=== PATIENT | male | born 1940 | race Caucasian/White ===

== ENCOUNTER 2017-04-25 10:25 | Day surgery (SDC) | payer MEDICARE, OTHER ==
[2017-04-25] VITALS (11 sets, daily range): BP systolic 124–151; BP diastolic 68–81; PULSE 68–86; RESP 16–19; TEMP 97.8–98.6; O2SAT 95–98
[~2017-04-25] VITALS: Ht 165.1 cm; Wt 98.3 kg
[2017-04-25] MEDS ORDERED: IOHEXOL 350 MG/ML 100 ML BTL (for Cath Lab) OTHER ONE (10:26)
[2017-04-25] MEDS ORDERED: NS 1000P @30 MLS/HR (KVO) IV SCH (11:00)
[2017-04-25] MEDS ORDERED: ASPIRIN 81 MG CHEW TAB PO SCH (11:15)
[2017-04-25 11:25] LABS: AUTOMATED NEUTROPHIL # 2.8 TH/MM3 (1.8-7.7); BASOPHIL % 0.6 % (0.0-2.0); EOSINOPHIL # 0.3 TH/MM3 (0-0.4); HEMATOCRIT 41.2 % (39.0-51.0); HEMOGLOBIN 14.4 GM/DL (13.0-17.0); LYMPH % 31.8 % (9.0-44.0); LYMPHOCYTE # 1.7 TH/MM3 (1.0-4.8); MEAN CELL VOLUME 87.9 FL (80.0-100.0); MEAN CORPUSCULAR HEMOGLOBIN 30.7 PG (27.0-34.0); MEAN CORPUSCULAR HGB CONC 34.9 % (32.0-36.0); MEAN PLATELET VOLUME 7.1 FL (7.0-11.0); MONO % 11.2 % (0.0-8.0); MONOCYTE # 0.6 TH/MM3 (0-0.9); NEUT % 51.4 % (16.0-70.0); PLATELET COUNT 185 TH/MM3 (150-450); RED BLOOD COUNT 4.69 MIL/MM3 (4.50-5.90); RED CELL DISTRIBUTION WIDTH 13.7 % (11.6-17.2); WHITE BLOOD COUNT 5.4 TH/MM3 (4.0-11.0)
[2017-04-25] MEDS ORDERED: ECASA81 PO (11:26)
[2017-04-25] MEDS ORDERED: METO1TAB42 PO (11:26)
[2017-04-25] MEDS ORDERED: ALTA2.5C4 PO (11:26)
[2017-04-25] MEDS ORDERED: LEVO75TA3 PO (11:26)
[2017-04-25] MEDS ORDERED: FAMO40TA PO (11:26)
[2017-04-25] MEDS ORDERED: LIPI10TA PO (11:26)
[2017-04-25] MEDS ORDERED: PLAV75TA29 PO (11:26)
[2017-04-25 11:34] LABS: INTERNATIONAL NORMALIZED RATIO 1.1 RATIO; PROTHROMBIN TIME - PATIENT 10.7 SEC (9.8-11.6)
[2017-04-25 11:40] LABS: BICARBONATE 28.2 MEQ/L (21.0-32.0); CALCIUM 8.6 MG/DL (8.5-10.1); CREATININE 1.15 MG/DL (0.60-1.30)
[2017-04-25] MEDS ORDERED: HEPARIN-NS/PF FLUSH BAG 1,000 ML IV FLUSH ONE (12:16)
[2017-04-25] MEDS ORDERED: MIDAZOLAM HCL 2 MG/2 ML VIAL IV ONE (12:44)
[2017-04-25] MEDS ORDERED: ADENOSINE STRESS TEST INJ 90 MG/30 ML VIAL IV ONE (13:05)
--- NOTE | 2017-04-25 13:24 | CATHPROC ---
Custom Coup HIS Report Study Information Study Number Admission Scheduled Start Study Start [id number] Apr 25 2017 10:25AM 04/25/2017 Apr 25 2017 11:33AM [place] [facility] Cardiac Catheterization Admit Source Facility Department Other [facility] Physician and Clinical Staff Initial MD Young, Ten Web Content Director Tan Hannon,ELIF Other cathlab, cathlab Recorder Shannan Ramires,ODD JOBS DAY WORKER TECH2 Scrub Shayla Melara,RT(R) (BS) Procedures Performed Procedure Location (Site) Vessel Name Coronary Angiograms LCA Left Coronary Coronary Angiograms RCA Right Coronary L Heart Cath LV Gram-hand inj. LV LV Ventricle Equipment Time Protective Services Social Worker Description Size Mfg Part Number Used/Scraped TRANSDUCER, TRUWAVE [id number] 12:22 DRAKE LINO * Used W/STOCKCOCK *[id number] *[id number] *[id number] *[id number] 12:22 MEDLINE IND[employer] PACK, CCL CUSTOM * Used *[id number] 12:22 DesignMyNight PACER PEN, SKIN DUAL W/ RULER * Used *[id number] 12:54 i[employer]Run MEDICAL SHEATH, FR6.5 PRELUDE 11CM FR 6.5 038ACT Used *[id number] 12:22 [employer] MEDICAL WIRE, 3MMJ .035 180CM 180CM Used *[id number] 12:22 NAMIC MANIFOLD, 4 PORT * Used *[id number] 12:22 NYCOMED OMNIPAQUE, 350 MG, 150ML 150ML [id number] Used [id number] 12:22 [employer] MEDICAL BLANKET,WARM AIR CCL * Used *[id number] 12:22 TERUMO MEDICAL SHEATH, FR4 TERUMO (10CM) FR 4 Used *[id number] 12:59 [place] PRIME WIRE, VERRATA 185CM 185CM [id number] *[id number] Used History: Current Medications Medication Dosage/Unit Route Frequency Last Date/Time Taken PLAVIX LIPITOR NORVASC History: Allergies Allergy Reaction No Known Allergies History: Risk Factors Family History of Hypertension Dyslipidemia Previous LA Previous Heart Failure Premature CAD Yes No Yes No No Prior Valve Prior PCI Prior PCIDate Prior CABG Surgery Yes Yes 02/29/2012 No Cerebrovascular Peripheral Artery Chronic Lung On Dialysis Diabetes Disease Disease Disease No Yes No No No History: Stress Tests Stress or Imaging Studies Performed Yes Standard Exercise Stress Stress Test Result Stress Test Ischemia Risk/Extent Test Yes Positive Intermediate Stress Echo No Stress Test SPECT No Stress Test CMR No Cardiac CTA Coronary Calcium Score No No History: Other Current Smoker Method Quit Packs a Day Years Used Pack Years Yes Cigarettes 55 Years Ago 1 6 6 Labs Hgb (g/dl) Hct (%) RBC (MIL/MM3) WBC (l/cumm) Platelets (thousands) 11.60-17.00 35.00-51.00 4.00-5.90 4.00-11.00 150.00-450.00 14.4 41.2 4.6 5.4 185 Glucose (mg/dl) BUN (mg/dl) Creatinine (mg/dl) BUN:Creatinine (1:x) 74.00-106.00 7.00-18.00 0.50-1.30 10.00-20.00 101 21 1.1 19.1 Na (meq/l) K (meq/l) Cl (meq/l) CO2 (mmol/L) Ca (mg/dl) 136.00-145.00 3.50-5.10 98.00-107.00 21.00-32.00 8.50-10.10 141 4 108 28.2 8.6 PT (sec) PTT (sec) INR (PTT:PT) 9.80-11.60 24.30-30.10 0.90-1.10 10.7 42.5 1.1 Medication Medication Total Dose (Bolus/Oral) Medication Total Dosage/Unit 1% XYLOCAINE 20 mL HEPARIN 6800 units VERSED 1 mg Medications (Bolus/Oral) Medication Time Given Dosage/Unit Administered By Reason 1% XYLOCAINE 04/25/2017 12:43:11 PM 20 mL Ten Young 20 mL 1% XYLOCAINE given in lab by Ten Young in Right Groin via Subcutaneous. Ordered by Ten Amin. VERSED 04/25/2017 12:44:07 PM 1 mg Tan Hannon 1 mg VERSED given in lab by Tan Hannon RN in Left Hand via Peripheral IV. Ordered by Wilfredo Young. HEPARIN 04/25/2017 12:54:16 PM 6800 units Tan Hannon 6800 units HEPARIN given in lab by Tan Hannon RN in Left Hand via Peripheral IV. Ordered by Ten Amin. Medication (Drip) Medication Time Given Dosage/Unit Concentration/Unit Diluent (ml) Solution ADENOSINE DRIP 04/25/2017 1:05:30 PM 138.718 mcg/kg/min 90 mg 90 NaCl .9 138.718 mcg/kg/min ADENOSINE DRIP given in lab by Tan Hannon RN in Left Hand via Peripheral IV. P ump/Drip Flow = 814 ml/hr using NaCl .9 with a concentration of 90 mg in 90 ml. Ordered by Ten Young. IV Solutions 04/25/2017 12:18:30 PM 0 mL (IV) 500 NaCl .9 IV Solutions given in lab by Tan Hannon RN in Left Hand via Peripheral IV. Pump/Drip Flow = 20 ml /hr using NaCl .9. Ordered by Ten Young. Initial Case Assessment Cardiovascular HR NIBP 62 150/70 Edema Present Skin color Skin None Normal Warm Dry Circulatory - Right Pulses Dorsalis Pedis Femoral 2 2 Scale (0,1,2,3,4,d) Circulatory - Left Pulses Dorsalis Pedis Femoral 2 2 Scale (0,1,2,3,4,d) Neurological State Oriented to time-place- Alert Moves all extremities person Respiration - General Respiration Rate SpO2 (%) (B/min) 15 97 Final Case Assessment Cardiovascular HR NIBP 81 137/78 Edema Present Skin color Skin None Normal Warm Dry Circulatory - Right Pulses Dorsalis Pedis Femoral 2 2 Scale (0,1,2,3,4,d) Circulatory - Left Pulses Dorsalis Pedis Femoral 2 2 Scale (0,1,2,3,4,d) Neurological State Oriented to time-place- Alert Moves all extremities person Respiration - General Respiration Rate SpO2 (%) (B/min) 17 97 Chronological Log Time Study Chronological Log 12:18:17 Patient arrived via Bed. 12:18:18 Patient Name, D.O.B, / Armband Verified By R.N. 12:18:19 Consent signed by the physician and the patient and verified by the [facility] staff. 12:18:19 Pre-op and post- op instructions given; patient acknowledges understanding of instructions. 12:18:22 Patient has been NPO for More than 6Hrs. 12:18:23 NO Skin Breakdown- 12:18:24 Patient Warmer Placed on the Table. 12:18:25 Mik Prominences Protected 12:18:28 A # 20 IV was noted in the Hand (left). Grade = 0 IV Solutions given in lab by Tan Hannon RN in Left Hand via Peripheral IV. Pump/Drip Flow = 20 ml/hr using NaCl .9. 12:18:30 Ordered by Ten Young. 12:18:32 History and physical on the chart or being dictated. Vitals capture started with the following parameters, Patient=Adult, Interval=5 min, Initial Pr nmjhec=437 mmHg, 12:22:55 Deflation Rate=5 mmHg, Cuff placed on Left Arm Vitals capture started with the following parameters, Patient=Adult, Interval=5 min, Initial Pr mntkdv=806 mmHg, 12:23:46 Deflation Rate=5 mmHg, Cuff placed on Left Arm 12:24:28 HR=62 bpm, RXAC=911/70 mmhg, SpO2=97.0 %, Resp=15 B/min, Pain=0, Phoebe=10, Healy=2 Assessment: Initial Case, HR=62 BPM, HWEA=201/70 mmhg, Edema=None, Color=Normal, Skin = Warm, D ry Right Pulses: Ministerio Ped=2, Femoral=2 12:25:46 Left Pulses: Ministerio Ped=2, Femoral=2 Neurological: State=Alert, Ox3, HMAEED Respiration: Resp=15 B/min, SpO2=97 % 12:29:59 HR=73 bpm, RAOJ=696/73 mmhg, SpO2=97.0 %, Resp=13 B/min, Pain=0, Phoebe=10, Healy=2 12:34:26 HR=65 bpm, HVJT=042/79 mmhg, SpO2=98.0 %, Resp=17 B/min, Pain=0, Phoebe=10, Healy=2 12:38:17 Pressure channel 1 zeroed. 12:38:23 Reference ECG taken 12:39:53 HR=74 bpm, YJXE=261/81 mmhg, SpO2=95.0 %, Resp=10 B/min, Pain=0, Phoebe=10, Healy=2 Time Out. Correct patient, correct procedure, correct physician, power injector loaded, or not loaded with contrast with 12:43:08 surgical team present. Time Out Concurred by MD and individual staff in procedure. 12:43:09 Case Start 20 mL 1% XYLOCAINE given in lab by Ten Young in Right Groin via Subcutaneous. Ordered by Hannah 12:43:11 Ten. 12:44:07 1 mg VERSED given in lab by Tan Hannon RN in Left Hand via Peripheral IV. Ordered by Ten Lai. 12:44:22 HR=82 bpm, LEZK=049/104 mmhg, SpO2=97.0 %, Resp=12 B/min, Pain=0, Phoebe=10, Healy=2 12:45:07 Access site was Right Femoral Artery. 12:45:13 A SHEATH, FR4 TERUMO (10CM) FR 4 was advanced into the Fem Art (right) using the Modified S eldinger technique. A JR 4.0 INFINITI CATHETER FR 4 was advanced over a wire. OMNIPAQUE, 350 MG, 150ML 150ML was us ed for 12:45:22 injections. Recorded Pressure: LV, HR=79, Condition=Condition 1 12:46:33 (Left Ventricle) LV 145/7/19 12:46:36 The LV was manually injected with 10 cc's and visualized. OMNIPAQUE, 350 MG, 150ML 150ML us ed. Recorded Pressure: LV, Ao, HR=76, Condition=Condition 1 12:46:47 (Left Ventricle) LV 139/6/16, (Aorta) Ao 136/71/101 Recorded Pressure: Ao, HR=77, Condition=Condition 1 12:46:55 (Aorta) Ao 141/74/104 12:47:30 The RCA was injected and visualized at various angles. OMNIPAQUE, 350 MG, 150ML 150ML used . 12:49:27 HR=80 bpm, AFEQ=310/82 mmhg, SpO2=95.0 %, Resp=15 B/min, Pain=0, Phoebe=10, Healy=2 12:51:28 Catheter was removed A JL 4.0 INFINITI CATHETER FR 4 was advanced over a wire. OMNIPAQUE, 350 MG, 150ML 150ML was us ed for 12:51:29 injections. 12:52:25 The LCA was injected and visualized at various angles. OMNIPAQUE, 350 MG, 150ML 150ML used . A SHEATH, FR6.5 PRELUDE 11CM FR 6.5 was exchanged in the Fem Art (right). This was necessary in order to 12:53:37 accomodate a larger catheter. 12:54:16 6800 units HEPARIN given in lab by Tan Hannon, RN in Left Hand via Peripheral IV. Ordere d by Ten Young. 12:54:26 HR=85 bpm, HDLQ=784/77 mmhg, SpO2=96.0 %, Resp=20 B/min, Pain=0, Phoebe=10, Healy=2 A JR 4.0 GUIDE CATHETER FR 6 was advanced over a wire. OMNIPAQUE, 350 MG, 150ML 150ML was used for 12:55:22 injections. 12:59:56 HR=77 bpm, HGTD=182/81 mmhg, SpO2=95.0 %, Resp=14 B/min, Pain=0, Phoebe=10, Healy=2 13:00:48 Flow Wire was was placed in the RCA. The FFR measures ~FFR~ percent. The IFR measures 0.93 Percent. 13:02:46 Activated Clotting Time Drawn 13:04:26 HR=87 bpm, LELD=869/79 mmhg, SpO2=97.0 %, Resp=17 B/min, Pain=0, Phoebe=10, Healy=2 138.718 mcg/kg/min ADENOSINE DRIP given in lab by Tan Hannon, RN in Left Hand via Peripheral IV. Pump/Drip Flow 13:05:30 = 814 ml/hr using NaCl .9 with a concentration of 90 mg in 90 ml. Ordered by Ten Young. 13:08:16 ACT (Normal Range 90-180) = 290 13:09:27 HR=87 bpm, RWSJ=632/75 mmhg, SpO2=99.0 %, Resp=14 B/min, Pain=0, Phoebe=10, Healy=2 13:10:21 ADENOSINE DRIP DISCONTINUED 13:11:23 The wire was removed. 13:11:30 Catheter was removed 13:11:51 Case End 13:11:56 Catheter(s) removed without difficulty 13:11:58 In the Fem Art (right) the SHEATH, FR6.5 PRELUDE 11CM FR 6.[address] by Shayla Clark RT(R) (BS). 13:12:04 Sterile dressing applied to site 13:12:05 No case complications noted. 13:12:07 Cine recording checked. 13:12:10 Bedside Report will be given. 13:12:15 A Left Heart Cath was performed. 13:15:05 HR=81 bpm, QJCI=048/78 mmhg, SpO2=97.0 %, Resp=17 B/min, Pain=0, Phoebe=10, Healy=2 13:16:53 Vitals capture stopped. Assessment: Final Case, HR=81 BPM, DROI=457/78 mmhg, Edema=None, Color=Normal, Skin = Warm, Dr y Right Pulses: Ministerio Ped=2, Femoral=2 13:16:57 Left Pulses: Ministerio Ped=2, Femoral=2 Neurological: State=Alert, Ox3, HAMEED Respiration: Resp=17 B/min, SpO2=97 % 13:24:15 Patient moved to stretcher End Study - Contrast Media Used In Study Contrast Total Opened (mL) Total Used (mL) Total Wasted (mL) Omnipaque 70 70 0 End Study - Maximum Contrast Load Max Contrast Load (mL) 444.6 End Study - Radiation Exposure Fluoro Time (minutes) 3.7 End Study - Patient Disposition Complications Transferred To Telemetry Bed
[2017-04-25] MEDS ORDERED: MIDAZOLAM HCL 2 MG/2 ML VIAL ONE (13:32)
[2017-04-25] MEDS ORDERED: ADENOSINE STRESS TEST INJ 90 MG/30 ML VIAL ONE (13:33)
[2017-04-25] MEDS ORDERED: HEPARIN SODIUM - IV 10,000 UNITS/10 ML VIAL IV ONE (14:00)
[2017-04-25] MEDS ORDERED: SODIUM CHLORIDE 0.9% FLUSH 10 ML FLUSH IV FLUSH PRN (15:00)
[2017-04-25] MEDS ORDERED: MISC INFORMATION XX ONE (15:00)
--- NOTE | 2017-04-25 15:43 | MR ---
cc: Ten Young MD 04/25/2017 PROCEDURE PERFORMED: Left heart catheterization, left ventriculography, coronary angiography, FFR of the ostial right coronary artery. INDICATION: Coronary artery disease, moderate risk nuclear stress test. 1-[address] segment depression in leads 2, 3 and AVF, V4, V5 and V6. During exercise treadmill testing at 6:21 minutes, moderate sized fixed defect in the posterior wall and inferior wall apex. Clearance for VDOT. PROCEDURAL STATEMENT: Patient brought to the cardiac catheterization laboratory, prepped and draped in the usual sterile fashion. 10 mL of 1% Lidocaine was used to locally anesthetize the right common femoral artery. A 4 [place] sheath successfully placed in the right common femoral artery. A 4 [place] JL4 and JR4 catheter were used to perform left and right coronary angiography, left ventriculography. FINDINGS: LV pressure is 140/8-9. EF is 60%. Right coronary artery has a stent in the ostium. There is a 50-60% stenosis in the ostium. The stent in the mid segment is widely patent. There is mild disease in the mid segment beyond that stent up to 20% angiographically. Left main coronary artery has no significant disease angiographically. Left circumflex vessel has mild disease in the proximal segment up to 30% angiographically. First obtuse marginal vessel has an ostial 75-80% stenosis. It has a 90 degree angulation off the left circumflex; however, it has a second 90 degree angulation within 4 mm of the initial angulation. There is a stent just beyond this angulation that is widely patent. Reference vessel diameter is probably 2.25 mm in diameter. Second obtuse marginal vessel is a small to medium sized vessel with no significant disease angiographically. There is a distal posterolateral artery which is a 0.5 mm vessel with no significant disease angiographically. LAD has mild in-stent stenosis in the proximal mid segment. The mid segment has a 30-40% stenosis. First diagonal artery has an ostial 30% stenosis with a stent in the proximal segment which is widely patent. Due to the uncertain physiologic significance of the ostial right coronary artery stenosis along with the inferior ST changes and inferior wall fixed defect and need to clear the patient for VDOT, I did think it was medically necessary to perform FFR of the ostial right coronary artery. The 6 [place] sheath was exchanged for a 4 [place] sheath. 70 units/kilo of heparin was given. ACT was 290. A 6 [place] JR4 guide was placed into the aortic root. The guide catheter was thoroughly flushed with 20 mL of normal saline. Introducers were removed. Pressure waveforms were normalized. I then advanced the 0.014 Scott pressure wire into the distal RCA. The IFR was 0.93. We did a three minute infusion of 140 mcg/kg per minute of adenosine. Maximum FFR was 0.92. CONCLUSION: 1. 50-60% in-stent stenosis of the ostial right coronary artery as detailed above with FFR of 0.92 and IFR of 0.94. Otherwise, there is severe disease of the ostium of the first marginal vessel, however, this is a small vessel with a reference vessel diameter of 2.25 mm in diameter and very difficult angulation to perform angioplasty on as detailed above and the patient is asymptomatic. Therefore, I would treat this medically. 2. Otherwise, mild to moderate three vessel coronary disease in a right dominant system. 3. Widely patent stents in the first diagonal artery and proximal mid LAD. 4. Widely patent stent in the proximal mid right coronary artery. 5. Normal LV systolic function. Ejection fraction 60%. 6. Recommend continue medical management with Plavix 75 mg daily, Lipitor 10 mg at bedtime, metoprolol succinate 25 mcg daily, Norvasc 5 mg daily, Altace 2.5 mg daily. MD KAMILLA Ervin/JEREMIAH/fermin , 01:20 PM , 02:53 PM
[2017-04-25] MEDS: ACETAMINOPHEN 325 MG TAB PO PRN (20:34)
[2017-04-25] MEDS: SODIUM CHLORIDE 0.9% FLUSH 10 ML FLUSH IV FLUSH SCH (20:35)
[2017-04-25] MEDS ORDERED: ONDANSETRON HCL 4 MG/2 ML VIAL IV PUSH PRN ×2 (23:15)
[2017-04-26] VITALS (18 sets, daily range): BP systolic 112–137; BP diastolic 59–78; PULSE 56–86; RESP 16–20; TEMP 97.5–98.2; O2SAT 95–98
[2017-04-26] MEDS: ACETAMINOPHEN 325 MG TAB PO PRN (01:57)
[2017-04-26 04:44] LABS: AUTOMATED NEUTROPHIL # 6.3 TH/MM3 (1.8-7.7); BASOPHIL % 0.4 % (0.0-2.0); EOSINOPHIL # 0.1 TH/MM3 (0-0.4); EOSINOPHIL % 0.9 % (0.0-4.0); HEMATOCRIT 40.7 % (39.0-51.0); HEMOGLOBIN 14.1 GM/DL (13.0-17.0); LYMPH % 14.8 % (9.0-44.0); LYMPHOCYTE # 1.2 TH/MM3 (1.0-4.8); MEAN CELL VOLUME 88.1 FL (80.0-100.0); MEAN CORPUSCULAR HEMOGLOBIN 30.6 PG (27.0-34.0); MEAN CORPUSCULAR HGB CONC 34.7 % (32.0-36.0); MEAN PLATELET VOLUME 6.9 FL (7.0-11.0); MONO % 8.2 % (0.0-8.0); MONOCYTE # 0.7 TH/MM3 (0-0.9); NEUT % 75.7 % (16.0-70.0); PLATELET COUNT 181 TH/MM3 (150-450); RED BLOOD COUNT 4.61 MIL/MM3 (4.50-5.90); RED CELL DISTRIBUTION WIDTH 14.1 % (11.6-17.2); WHITE BLOOD COUNT 8.3 TH/MM3 (4.0-11.0)
[2017-04-26 05:06] LABS: CALCIUM 8.6 MG/DL (8.5-10.1); CREATININE 1.17 MG/DL (0.60-1.30)
[2017-04-26 05:08] LABS: CHOLESTEROL/ HDL RATIO 3.23 RATIO; HDL CHOLESTEROL 35.6 MG/DL (40.0-60.0)
[2017-04-26] MEDS ORDERED: CLOPIDOGREL 75 MG TAB PO SCH (09:00)
[2017-04-26] MEDS: SODIUM CHLORIDE 0.9% FLUSH 10 ML FLUSH IV FLUSH SCH (09:18)
--- NOTE | 2017-04-26 21:59 | EKG ---
Date Performed: 04/26/2017 Time Performed: 06:48:36 PTAGE: 76 years EKG: Sinus bradycardia Normal ECG except for rate PREVIOUS TRACING : 04/25/2017 15.55 Since the prior tracing, there has been no significan t change DOCTOR: Morris Wilcox Interpretating Date/Time 04/26/2017 21:58:52
--- NOTE | 2017-04-26 22:45 | EKG ---
Date Performed: 04/25/2017 Time Performed: 15:55:18 PTAGE: 76 years EKG: Sinus rhythm . Normal ECG PREVIOUS TRACING : 04/25/2017 11.22 Since the prior tracing, there has been no significant conner DOCTOR: Morris Wilcox Interpretating Date/Time 04/26/2017 22:43:23
--- NOTE | 2017-04-26 22:54 | EKG ---
Date Performed: 04/25/2017 Time Performed: 11:22:28 PTAGE: 76 years EKG: Sinus rhythm . Normal ECG NO PREVIOUS TRACING DOCTOR: Morris Wilcox Interpretating Date/Time 04/26/2017 22:52:08
== END 2017-04-26 12:48 | disposition home or self-care (01) ==
LOC: HDOC 10:25 → HDIC 10:26 → HCPC 18:54 → HDOC 04-26 12:48
PROVIDERS: ATTEND Internal Medicine Interventional Cardiology
DX: I25.10 Atherosclerotic heart disease of native coronary artery without angina pectoris (principal); E78.00 Pure hypercholesterolemia, unspecified
CPT/HCPCS: 80048; 80061; 82550; 85002; 85025; 85610; 93005; 93458; 93571; C1769; C1887; C1893; J0153; J1644; J2250; J2405; Q9967